=== PATIENT | female | born 1990 | race Two or more races ===

== ENCOUNTER 2017-05-29 09:00 | Emergency (ER) | payer MEDICAID ==
[~2017-05-29] VITALS: Ht 167.6 cm; Wt 81.6 kg
[2017-05-29 09:16] VITALS: BP 108/76
== END 2017-05-29 11:24 | disposition home or self-care (01) ==
LOC: ER 09:00
DX: S80.12XA Contusion of left lower leg, initial encounter (principal); S50.12XA Contusion of left forearm, initial encounter; S40.812A Abrasion of left upper arm, initial encounter; V43.52XA Car driver injured in collision with other type car in traffic accident, initial encounter; Y93.89 Activity, other specified; Y92.89 Other specified places as the place of occurrence of the external cause; Y99.8 Other external cause status
CPT/HCPCS: 73130; 73590